=== PATIENT | female | born 1955 | race Caucasian/White ===

== ENCOUNTER 2021-02-24 14:40 | Inpatient (IN) | payer OTHER ==
[2021-02-24] MEDS ORDERED: BISMUTH SUBSALICYLATE 524 MG/30 ML PO PRN (18:00)
[2021-02-24] MEDS ORDERED: IBUPROFEN 400 MG TABLET (FP) PO PRN (18:00)
[2021-02-24] MEDS ORDERED: ACETAMINOPHEN 325 MG TABLET (FP) PO PRN ×2 (18:00)
[2021-02-24] MEDS ORDERED: ONDANSETRON *ODT* 4 MG TABLET SL PRN (18:00)
[2021-02-24] MEDS ORDERED: MAGNESIUM HYDROX 2400MG/30ML ORAL SUSPENSION 30 ML CUP PO PRN (18:00)
[2021-02-24] MEDS ORDERED: MAGNESIUM CITRATE 300 ML BOTTLE PO PRN (18:00)
[2021-02-24] MEDS ORDERED: MAG HYDROX/AL HYDROX/SIMETH 30 ML UNIT-DOSE CUP PO PRN (18:00)
[2021-02-24] MEDS ORDERED: hydrOXYzine PAMOATE 25 MG CAPSULE (FP) PO PRN (18:00)
[2021-02-24] MEDS ORDERED: MENTHOL/PHENOL 1 EACH UD MM PRN (18:00)
[2021-02-24] MEDS ORDERED: diazePAM 5 MG TABLET PO ONE (18:01)
[2021-02-24] MEDS ORDERED: diazePAM 5 MG TABLET PO PRN (18:01)
[2021-02-24 19:37] VITALS: BMI 25.0
[2021-02-24] MEDS ORDERED: MELATONIN 5 MG TABLETS PO SCH (22:00)
[2021-02-24] MEDS: METHOCARBAMOL 500 MG TABLET PO PRN (22:50)
[2021-02-24] MEDS: diazePAM 5 MG TABLET PO SCH (22:51)
[2021-02-24] MEDS: THIAMINE HCL 100 MG TABLET (FP) PO SCH (22:51)
[2021-02-25] MEDS: diazePAM 5 MG TABLET PO SCH ×4 (06:09→22:17)
[2021-02-25] MEDS ORDERED: PNEUMOC 13-VAL CONJ-DIP CRM/PF 0.5 ML DISP.SYRIN IM ONE (10:00)
[2021-02-25] MEDS: PRENATAL VITAMINS W/ FOLIC ACID TABLET (FP) PO SCH (10:42)
[2021-02-25] MEDS ORDERED: hydrOXYzine PAMOATE 25 MG CAPSULE (FP) PO ONE (10:46)
[2021-02-25] MEDS: hydrOXYzine PAMOATE 50 MG CAPSULE (FP) PO PRN ×2 (10:47→17:50)
[2021-02-25 10:53] LABS: HEMATOCRIT 37.6 % (32.4-45.2); HEMOGLOBIN 12.8 GM/dL (10.7-15.3); MCHC 33.9 g/dl (32.0-36.0); MEAN CELL VOLUME 91.6 fl (80-96); MEAN PLT VOLUME 8.4 fl (7.5-11.1); PLATELET COUNT 99 10^3/uL (134-434); RBC 4.11 M/mm3 (3.60-5.2); WHITE BLOOD COUNT 2.8 K/mm3 (4.0-10.0)
[2021-02-25 11:02] LABS: ALBUMIN 2.8 g/dl (3.4-5.0); BLOOD UREA NITROGEN 6.7 mg/dL (7-18); CALCIUM 8.2 mg/dL (8.5-10.1)
[2021-02-25 11:06] LABS: CREATININE 0.5 mg/dL (0.55-1.3)
[2021-02-25 11:07] LABS: TOT PROT 5.9 g/dl (6.4-8.2)
[2021-02-25] MEDS: THIAMINE HCL 100 MG TABLET (FP) PO SCH (22:18)
[2021-02-25] MEDS: MELATONIN 5 MG TABLETS PO PRN (22:18)
[2021-02-25] MEDS: METHOCARBAMOL 500 MG TABLET PO PRN (22:19)
[2021-02-26] MEDS: diazePAM 5 MG TABLET PO SCH ×3 (06:15→22:15)
[2021-02-26] MEDS: hydrOXYzine PAMOATE 50 MG CAPSULE (FP) PO PRN ×3 (09:58→22:14)
[2021-02-26] MEDS: PRENATAL VITAMINS W/ FOLIC ACID TABLET (FP) PO SCH (09:58)
[2021-02-26] MEDS ORDERED: SERTRALINE HCL 50 MG TABLET (FP) PO SCH (10:00)
[2021-02-26] MEDS ORDERED: METOPROLOL TARTRATE 50 MG TABLET (FP) PO SCH (10:00)
[2021-02-26] MEDS ORDERED: PANTOPRAZOLE 20 MG TABLET PO SCH (10:00)
[2021-02-26] MEDS ORDERED: METOPROLOL TARTRATE 25 MG TABLET (FP) PO SCH (10:00)
[2021-02-26] MEDS: METHOCARBAMOL 500 MG TABLET PO PRN (17:54)
[2021-02-26] MEDS: THIAMINE HCL 100 MG TABLET (FP) PO SCH (22:14)
[2021-02-26] MEDS: MELATONIN 5 MG TABLETS PO PRN (22:15)
[2021-02-27] MEDS ORDERED: diazePAM 5 MG TABLET PO SCH (06:00)
[2021-02-27 08:52] VITALS: BP 121/69; PULSE 64; TEMP 97.7
[2021-02-28] MEDS ORDERED: diazePAM 5 MG TABLET PO ONE (06:00)
== END 2021-02-27 10:28 | disposition home or self-care (01) | DRG 897 ==
LOC: YASAS 14:40 → Y3N 19:47
PROVIDERS: ADMIT Allergy & Immunology; ATTEND Allergy & Immunology
PROC: HZ2ZZZZ Detoxification Services for Substance Abuse Treatment (ICD-10-PCS; principal; 2021-02-24)
DX: F10.230 Alcohol dependence with withdrawal, uncomplicated (principal); F19.282 Other psychoactive substance dependence with psychoactive substance-induced sleep disorder; F10.220 Alcohol dependence with intoxication, uncomplicated; F19.24 Other psychoactive substance dependence with psychoactive substance-induced mood disorder; F32.9 Major depressive disorder, single episode, unspecified; F41.9 Anxiety disorder, unspecified; I10 Essential (primary) hypertension; Z87.891 Personal history of nicotine dependence; Z91.410 Personal history of adult physical and sexual abuse; Z98.84 Bariatric surgery status; Z96.652 Presence of left artificial knee joint
CPT/HCPCS: 36415; 80053; 85027; 86780; C9803; U0003; U0005